=== PATIENT | male | born 1975 | race Hispanic/Latino ===

== ENCOUNTER 2024-03-10 17:15 | Inpatient (IN) | payer OTHER, SELFPAY ==
[2024-03-10 13:07] VITALS: BP 134/77
--- NOTE | 2024-03-10 15:10 | ED.GENMED ---
History of Present Illness
General
Chief Complaint: DVT/Possible Blood Clot
Source: patient
Time Seen by Provider: 03/10/24 13:16
History of Present Illness
History of Present Illness:
48-year-old male with past medical history of bipolar disorder and IBS presenting to the emergency department for evaluation at the request of his primary doctor after patient started noticed some redness and pain to his right leg around 1 week ago,
redness gradually extending along from the foot to the proximal mid right thigh, PCP concern for cellulitis versus DVT versus phlebitis. Patient states that he had been doing some outdoor yard work but did not notice any tick bites, Buford thorn
injury or any other insect bite. Denies any fevers, chills, rigors, headaches, vision disturbances, neck pain or stiffness or any other concerns. Patient denies any history of similar. He also denies any chest pain, shortness of breath,
palpitations or any other concerns.
Past History
Past History
ED Past Medical History: Psychiatric (bipolar) and Other (Chronic neck and back pain)
ED Past Surgical History: Orthopedic
Social History
Tobacco: Smoker
Alcohol: None
Drug: None
Personal:
Living: with family
Employment: Employed
Review of Systems
Review of Systems
All Other Systems: ROS reviewed and negative except as documented in HPI and ROS
Phy Exam
Physical Exam
Physical Exam:
GENERAL: Alert , in no apparent distress
EYE: conjunctiva clear
Head: Normocephalic atraumatic
NECK: Supple,
ENT: mmm.
LUNGS: no acute respiratory distress
NEUROLOGICAL: Alert and oriented
SKIN: Warm and dry, erythema tracking from medial right ankle through the medial gastronemius and into medial right thigh. Palpable chord. Hot to touch, ttp.
MUSCULOSKELETAL: well perfused. easily palpable pedal/tibial pulse
PSYCH: Normal and appropriate interaction.
Scores
Heart Failure Risk
Heart Failure Risk Score: Not Applicable
Heart Score for Chest Pain Patients
STEMI patient?: Not applicable
Withdrawal Assessment of Alcohol
Withdrawal Assessment Completed?: Not applicable
Course
Orders/Labs/Results
Orders:
Orders
03/10/24 13:16
US Periph Venous LOWER Ext RT Urgent
Comment:
Reason For Exam: edema, erythema
03/10/24 14:42
Ketorolac [Toradol] 30 mg IV NOW STA
03/10/24 15:41
Basic Metabolic Panel Urgent
Complete Blood Count/With Diff Urgent
Lyme Progressive Urgent
03/10/24 15:56
CeFAZolin 2 GRAM [Ancef] 2 grams in 10 ml IV NOW
Abnormal Lab Results
03/10/24
15:41
WBC 14.7 H 10^3/uL
(4.8-10.8)
RBC 4.64 L 10^6/uL
(4.70-6.10)
MCH 32.3 H pg
(27.0-31.0)
Abs Immat Gran (auto) 0.1 H 10^3/uL
(0-0.05)
Absolute Neuts (auto) 10.2 H 10^3/uL
(1.4-6.5)
Absolute Monos (auto) 1.0 H 10^3/uL
(0.1-0.6)
Immature Gran % 0.6 H %
(0-0.5)
BUN 21 H mg/dl
(9-20)
Glucose 113 H mg/dl
(70-99)
Calcium 10.5 H mg/dl
(8.4-10.2)
03/10/24 15:41
03/10/24 15:41
Vital Signs
Initial and Last Documented VS:
Initial Vital Signs
Temp Pulse Resp BP Pulse Ox
97.8 F 74 16 134/77 100
03/10/24 13:07 03/10/24 13:07 03/10/24 13:07 03/10/24 13:07 03/10/24 13:07
Last Documented Vital Signs
Temp Pulse Resp BP Pulse Ox
97.8 F 74 16 134/77 100
03/10/24 13:07 03/10/24 13:07 03/10/24 13:07 03/10/24 13:07 03/10/24 13:07
MDM/Problems Addressed
Differential Diagnosis Includes:
phlebitis, DVT, cellulitis
MDM/Problems Addressed:
48-year-old male presenting the ER for evaluation of right lower extremity erythema and pain. Ongoing for about 1 week. Gradually increased tracking to the proximal portion of the extremity which is what prompted primary care to send patient to
the ER. Patient denies any fevers or chills. No history of diabetes. Will order ultrasound and labs. Toradol ordered for pain control. Reassessment following.
*Radiology
Radiology exam reviewed: radiology read reviewed
*Pulse Oximetry
Patient hypoxic: no
*Critical Care Note
Total Time (30-74mins, 75-104mins- exclusive of procedures): Not Applicable
Patient Management
Discussion with other providers: Hospitalist
Escalation/DeEscalation of care consider admission/obs:
Ultrasound negative for DVT. There is prominent lymph node noted in the right groin. Leukocytosis on labs noted. Suspect cellulitis is most likely diagnosis at this point. Given the extent of the streaking feel patient would be better served
being admitted for IV antibiotics. 2 g Ancef ordered. Hospitalist team notified and accepts for continued evaluation and treatment.
ED Attending Note
-
Portions of this chart may have been created with voice recognition software.� Occasional wrong word or��sound alike� substitutions may have occurred due to the inherent limitations of voice recognition software.
Discharge Plan
Departure
Patient Disposition: Admit
Date of Disposition: 03/10/24
Time of Disposition: 15:57
Presentation/result/management discussed w/ accepting MD/DO: Hospitalist
Discharge Problem:
Cellulitis of leg, right
Prescriptions:
No Action
hydroxyzine pamoate 50 mg Capsule
50 mg PO BIDPRN PRN (Reason: anxiety)
Theragen Tablet
1 tab PO DAILY
quetiapine [Seroquel] 100 mg Tablet
100 mg PO DAILYPRN PRN (Reason: anxiety)
divalproex 500 mg Tablet Extended Release 24 Hr
500 mg PO DAILY
divalproex 500 mg Tablet Extended Release 24 Hr
1,000 mg PO HS
ibuprofen [Advil] 200 mg Tablet
400 mg PO Q6HPRN PRN (Reason: mild pain)
fenofibrate nanocrystallized 145 mg tablet
145 mg PO DAILY
quetiapine [Seroquel XR] 400 mg Tablet Extended Release 24 Hr
400 mg PO HS
Patient Comments:
03/10/24: States he takes ER seroquel, despite most recent fill not ER.
omega 0-chi-ccp-fish oil [Fish Oil] 1,200 (144-216) mg Capsule
1 cap PO DAILY
Medical Marijuana
1 dose PO DAILYPRN PRN (Reason: anxiety)
Referrals:
Julian Shah DO [Family Provider] -
Interventions
Interventions:
*Risk Screen - Suicide Last Done: 03/10/24 13:09
*General Assessment Last Done: 03/10/24 13:34
*Neglect/Abuse Screening Last Done: 03/10/24 13:09
*ED COVID-19 Vaccine History Last Done: 03/10/24 13:34
ED- Cardiac Assessment Last Done: 03/10/24 13:32
ED- Pulmonary Assessment Last Done: 03/10/24 13:32
ED-Peripheral Vascular Assessment Last Done: 03/10/24 13:32
ED-Skin Assessment Last Done: 03/10/24 13:32
Discharge Date and Time
Print Language: GEORGIAN
[2024-03-10] MEDS: TORADOL 30 MG IV (15:42)
[2024-03-10 15:58] LABS: % Basophils 0.3 % (0-2); % Eosinophils 1.6 % (0-6); % Immature Granulocytes 0.6 % (0-0.5); % Monocytes 7.1 % (1.7-9.3); % Neutrophils 69.4 % (42.2-75.2); Absolute Basophils 0.1 10^3/uL (0-0.2); Absolute Eosinophils 0.2 10^3/uL (0-0.7); Absolute Immature Granulocytes 0.1 10^3/uL (0-0.05); Absolute Lymphocytes 3.1 10^3/uL (1.2-3.4); Absolute Neutrophils 10.2 10^3/uL (1.4-6.5); Mean Corp Hgb Conc. 35.7 g/dL (33.0-37.0); Mean Corpuscular Hgb 32.3 pg (27.0-31.0); Mean Corpuscular Volume 90.5 fL (80.0-94.0); Mean Platelet Volume 10.2 fL (7.4-10.4); Nucleated Red Blood Cells % 0 % (-); Platelet Count 274 10^3/uL (130-400); Red Blood Cell Count 4.64 10^6/uL (4.70-6.10); Red Cell Dist. Width 13.2 % (11.5-14.5); White Blood Cell Count 14.7 10^3/uL (4.8-10.8)
[2024-03-10 16:12] LABS: Blood Urea Nitrogen 21 mg/dl (9-20); Calcium 10.5 mg/dl (8.4-10.2); Carbon Dioxide 26 mmol/L (22-30); Chloride 104 mmol/L (98-107); Glucose 113 mg/dl (70-99); Potassium 4.4 mmol/L (3.5-5.1); Sodium 142 mmol/L (135-145); eGFR > 60.00
[2024-03-10] MEDS: ANCEF 10 IV ×2 (16:17→23:23)
--- NOTE | 2024-03-10 16:44 | HPS.HSE ---
Family Physician
-
Family Physician: Julian Shah
Chief Complaint
-
Redness Right Lower Extremity
History of Present Illness
Patient is a 48 y/o male past medical history of bipolar disorder who presents with redness of the right leg. He notes on Sunday he developed some pain in the right calf area. Yesterday evening he noted a hard lump in the inner right thigh. In
the morning he noted the redness was worse and outside a line he marked last night. He reports increasing pain particular in the right inner thigh. He saw his PCP earlier today who sent him to the emergency department for evaluation. He denies
fevers, sweats or chills.
Medical History
Past Medical History
Past Medical History: Reports Other
Additional Past Medical History:
Bipolar Disorder / PTSD / Anxiety
Hypertriglyceridemia
Irritable Bowel Syndrome
Past Surgical History: Reports Other
Additional Past Surgical History:
Left Knee Meniscus
Right Foot Fracture
Social History
Tobacco: Smoker (1 PPD)
Family History
Family History: Not pertinent
Allergies / Home Medications
Allergies reflects when Allergies were last updated in [facility].
Home Medications with original date entered in [employer]
Allergy/Medication List:
Allergies
Allergy/AdvReac Type Severity Reaction Status Date / Time
No Known Allergies Allergy Verified 03/10/24 13:09
Home Medications
Medical Marijuana 1 dose PO DAILYPRN PRN anxiety 03/10/24
divalproex 500 mg tablet,extended release 24 hr 1,000 mg PO HS bipolar disorder 03/10/24
divalproex 500 mg tablet,extended release 24 hr 500 mg PO DAILY bipolar disorder 03/10/24
fenofibrate nanocrystallized 145 mg tablet 145 mg PO DAILY High Cholesterol 03/10/24
hydroxyzine pamoate 50 mg capsule 50 mg PO BIDPRN PRN anxiety 03/10/24
ibuprofen 200 mg tablet (Advil) 400 mg PO Q6HPRN PRN mild pain 03/10/24
omega 3-gvj-apj-fish oil 1,200 mg (144 mg-216 mg) capsule (Fish Oil) 1 cap PO DAILY Supplement 03/10/24
quetiapine 100 mg tablet (Seroquel) 100 mg PO DAILYPRN PRN anxiety 03/10/24
quetiapine 400 mg tablet,extended release 24 hr (Seroquel XR) 400 mg PO HS bipolar disorder 03/10/24
therapeutic multivitamin 1 tab PO DAILY Supplement 03/10/24
Review of Systems
-
A 12 point ROS was completed and negative except as noted: Yes
Constitutional: Denies Fever or Chills
Respiratory: Denies Cough or Trouble Breathing
Cardiac: Denies Chest Pain or Palpitations
Abdomen/GI: Denies Abdominal Pain, Nausea, Vomiting or Diarrhea
Physical Exam
Vital Signs
Vital Signs
Temp Pulse Resp BP Pulse Ox
97.8 F 74 16 134/77 100
03/10/24 13:07 03/10/24 13:07 03/10/24 13:07 03/10/24 13:07 03/10/24 13:07
Physical Exam
General: Comfortable and Conversant
HEENT: Anicteric and Moist mucous membranes
Respiratory: Clear and Non Labored Respirations
Cardiac: S1/S2 and Regular Rhythm
GI: Soft, Non Tender and Non Distended
Rectal: Deferred by Provider
Musculoskeletal: No Clubbing, No Cyanosis and Edema, Right Lower Extremity
Skin: Other (Area of induration right medical thigh without central fluctuance; Moderate erythema from right inner calf streaking up to the right groin with increased warmth to touch)
Neuro: Awake, Alert, Oriented and Nonfocal/grossly intact
Psych: Calm
Laboratory Results
-
03/10/24 15:41
03/10/24 15:41
Data Reviewed
-
Ultrasound: Report Reviewed by me
Lab Data: Labs Reviewed by me
Old Records: Reviewed
Impression/Plan
-
Right Lower Extremity Cellulitis with Lymphangitis
-Continue Ancef
Hypercalcemia
-Recheck calcium in AM
-Check PTH
Bipolar Disorder
-Continue Depakote and Seroquel
Hypertriglyceridemia
-Continue fenofibrate
DVT proph: Lovenox
Code Status: Full Code
[2024-03-10 17:12] LABS: Albumin 4.8 g/dl (3.5-5.0)
--- NOTE | 2024-03-10 17:29 | W.PN.UPDATE ---
Update Note
Progress Note Update
This is an addendum to the H&P written by Kusum Granado on 03/2024. Patient seen examined independently with PA.
48-year-old male past medical history of bipolar disorder, here for cellulitis/lymphangitis of right lower extremity. Cefazolin.
[2024-03-10 17:40] VITALS: BP 136/81; BMI 28.5
[2024-03-10] MEDS: MORPHINE SULFATE 2 MG IV (18:11)
[2024-03-10] MEDS: LOVENOX 40 MG SC (18:11)
--- NOTE | 2024-03-10 18:19 | PTCARENOTE ---
pt presents from ED via stretcher. pt is AAO*3, Vss, room air. pt c/o chronic sciatica pain on his lower back. pt oriented to the room. call pizarro within the reach. plan of care ongoing.
[2024-03-10] MEDS: DEPAKOTE ER (24 HR RELEASE) 1000 MG PO (18:38)
[2024-03-10] MEDS: NON-FORMULARY ITEM 400 MG PO (19:56)
[2024-03-10] MEDS: SEROQUEL 100 MG PO (19:56)
[2024-03-10 23:19] VITALS: BP 108/68
[2024-03-10] MEDS: FLUSH (NSS) 1 FLUSH IV (23:23)
[2024-03-11] MEDS: DEPAKOTE ER (24 HR RELEASE) 500 MG PO (07:21)
[2024-03-11 07:30] VITALS: BP 119/69
[2024-03-11] MEDS: ANCEF 10 IV ×3 (08:01→23:03)
[2024-03-11] MEDS: TRICOR 145 MG PO (08:01)
[2024-03-11] MEDS: NICODERM TRANSDERMAL 7 MG TRANSDERM (08:03)
[2024-03-11] MEDS: TORADOL 10 MG IV ×2 (08:05→23:06)
[2024-03-11 08:09] LABS: Hematocrit 40.3 % (39.0-52.0); Hemoglobin 14.3 g/dL (13.0-18.0); Mean Corp Hgb Conc. 35.5 g/dL (33.0-37.0); Mean Corpuscular Hgb 32.5 pg (27.0-31.0); Mean Corpuscular Volume 91.6 fL (80.0-94.0); Mean Platelet Volume 10.3 fL (7.4-10.4); Platelet Count 255 10^3/uL (130-400); Red Cell Dist. Width 13.2 % (11.5-14.5)
[2024-03-11 08:23] LABS: Intact PTH 23.9 pg/ml (13.6-85.8)
[2024-03-11 08:37] LABS: Albumin 4.3 g/dl (3.5-5.0); Blood Urea Nitrogen 21 mg/dl (9-20); Calcium 9.8 mg/dl (8.4-10.2); Carbon Dioxide 22 mmol/L (22-30); Chloride 105 mmol/L (98-107); Estimated Creatinine Clearance 82 ml/min; Glucose 125 mg/dl (70-99); Potassium 4.6 mmol/L (3.5-5.1); Sodium 140 mmol/L (135-145); eGFR > 60.00
--- NOTE | 2024-03-11 10:05 | W.PN.HOSP.TC ---
Today's Communication/Plan
-
see outlined plan
Assessment / Plan
Assessment / Plan
Assessment:
Right Lower Extremity Cellulitis with Lymphangitis
- continue Ancef day 1
- start Doxycycline day 1
- elevated RLE at all times
- taylor borders with marker, d/w RN
Hypercalcemia, suspect from dehydration
- normalized
- PTH normal
Bipolar Disorder
- continue Depakote and Seroquel
Hypertriglyceridemia
- continue fenofibrate
DVT ppx: Lovenox
Code: Full
Anticipated Discharge: 24 - 48 hours
Subjective/Interval History
-
Date of Service: March 11, 2024
patient denies any acute complaints
reports RLE redness is improving, less tenderness along posterior calf area and also near knee
no fevers
Objective Data
-
Labs:
Laboratory Results
03/11/24
07:09
WBC 14.0 H
Hgb 14.3
Hct 40.3
Plt Count 255
Sodium 140
Potassium 4.6
Chloride 105
Carbon Dioxide 22
BUN 21 H
Creatinine 1.0
Glucose 125 H
Calcium 9.8
Vital Signs:
Vital Signs
Temp Pulse Resp BP Pulse Ox
98.2 F 70 18 119/69 98
03/11/24 07:30 03/11/24 07:30 03/11/24 07:30 03/11/24 07:30 03/11/24 07:30
I&O
03/10/24 03/11/24 03/12/24
06:59 06:59 06:59
Intake Total 480 / 480
Balance 480 / 480
Physical Exam
-
General: No Apparent Distress
HEENT: Normocephalic and Atraumatic
Respiratory: Negative Wheezes
Cardiac: Regular Rhythm and S1/S2
GI: Soft and Nontender
Genito-urinary: No Costovertebral Tender
Musculoskeletal: Other (RLE with streaking erythema along medial thigh near knee down towards medial calf and near lateral ankle)
Neuro: AO x 3
Hematologic / Lymphatic: No Lymphadenopathy
Psych: Calm
Data Reviewed
-
Total Time Spent with Patient (in minutes): 42
Labs: Labs Reviewed by me
[2024-03-11] MEDS: VIBRAMYCIN 100 MG PO ×2 (10:46→19:54)
[2024-03-11 10:54] VITALS: BMI 28.5
[2024-03-11] MEDS: TYLENOL 650 MG PO (14:43)
[2024-03-11 15:14] VITALS: BP 111/68
[2024-03-11] MEDS: LOVENOX 40 MG SC (18:27)
[2024-03-11] MEDS: DEPAKOTE ER (24 HR RELEASE) 1000 MG PO (19:54)
[2024-03-11] MEDS: NON-FORMULARY ITEM 400 MG PO (19:54)
[2024-03-11] MEDS: SEROQUEL 100 MG PO (19:56)
[2024-03-11 23:00] VITALS: BP 101/61
[2024-03-12] MEDS: DEPAKOTE ER (24 HR RELEASE) 500 MG PO (06:31)
[2024-03-12 07:20] VITALS: BP 114/66
[2024-03-12 07:34] LABS: % Basophils 0.4 % (0-2); % Eosinophils 2.7 % (0-6); % Immature Granulocytes 0.4 % (0-0.5); % Lymphocytes 22.6 % (20.5-51.1); % Monocytes 9.2 % (1.7-9.3); % Neutrophils 64.7 % (42.2-75.2); Absolute Eosinophils 0.3 10^3/uL (0-0.7); Absolute Immature Granulocytes 0.1 10^3/uL (0-0.05); Absolute Lymphocytes 2.5 10^3/uL (1.2-3.4); Absolute Neutrophils 7.2 10^3/uL (1.4-6.5); Hematocrit 39.5 % (39.0-52.0); Mean Corp Hgb Conc. 35.4 g/dL (33.0-37.0); Mean Corpuscular Hgb 32.2 pg (27.0-31.0); Mean Corpuscular Volume 90.8 fL (80.0-94.0); Mean Platelet Volume 10.1 fL (7.4-10.4); Nucleated Red Blood Cells % 0 % (-); Platelet Count 234 10^3/uL (130-400); Red Blood Cell Count 4.35 10^6/uL (4.70-6.10); Red Cell Dist. Width 12.8 % (11.5-14.5); White Blood Cell Count 11.1 10^3/uL (4.8-10.8)
[2024-03-12 08:46] LABS: Blood Urea Nitrogen 22 mg/dl (9-20); Calcium 9.6 mg/dl (8.4-10.2); Carbon Dioxide 25 mmol/L (22-30); Chloride 103 mmol/L (98-107); Estimated Creatinine Clearance 75 ml/min; Glucose 120 mg/dl (70-99); Potassium 4.5 mmol/L (3.5-5.1); Sodium 141 mmol/L (135-145); eGFR > 60.00
[2024-03-12] MEDS: ANCEF 10 IV (09:18)
[2024-03-12] MEDS: NICODERM TRANSDERMAL 7 MG TRANSDERM (09:18)
[2024-03-12] MEDS: TRICOR 145 MG PO (09:19)
[2024-03-12] MEDS: VIBRAMYCIN 100 MG PO (09:19)
--- NOTE | 2024-03-12 09:38 | W.PN.HOSP.TC ---
Today's Communication/Plan
-
dc home
Assessment / Plan
Assessment / Plan
Assessment:
Right Lower Extremity Cellulitis with Lymphangitis
- symptoms improving, leukocytosis improving
- DC on Keflex + Doxy x 10 days further
- elevated RLE at all times
- PCP f/u in 7-10 days
Hypercalcemia, suspect from dehydration
- normalized
- PTH normal
Bipolar Disorder
- continue Depakote and Seroquel
Hypertriglyceridemia
- continue fenofibrate
DVT ppx: Lovenox
Code: Full
More than 30 minutes spent in discharge including
Final examination of the patient
Summarizing hospital stay
Instructions for continuing care to all relevant caregivers
Preparation of discharge records, prescriptions, and referral forms
Total time spent (in minutes):41
Anticipated Discharge: Today
Subjective/Interval History
-
Date of Service: March 12, 2024
reports improving pain, less edema, less redness, able to ambulate easier
Objective Data
-
Labs:
Laboratory Results
03/12/24
07:24
WBC 11.1 H
Hgb 14.0
Hct 39.5
Plt Count 234
Sodium 141
Potassium 4.5
Chloride 103
Carbon Dioxide 25
BUN 22 H
Creatinine 1.1
Glucose 120 H
Calcium 9.6
Vital Signs:
Vital Signs
Temp Pulse Resp BP Pulse Ox
97.9 F 66 16 114/66 97
03/12/24 07:20 03/12/24 07:20 03/12/24 07:20 03/12/24 07:20 03/12/24 07:20
I&O
03/11/24 03/12/24 03/13/24
06:59 06:59 06:59
Intake Total 480 / 480 960 / 960
Balance 480 / 480 960 / 960
Physical Exam
-
General: No Apparent Distress
HEENT: Normocephalic and Atraumatic
Respiratory: Negative Wheezes
Cardiac: Regular Rhythm and S1/S2
GI: Soft and Nontender
Genito-urinary: No Costovertebral Tender
Neuro: AO x 3
Hematologic / Lymphatic: No Lymphadenopathy
Psych: Calm
Data Reviewed
-
Total Time Spent with Patient (in minutes): 41
Labs: Labs Reviewed by me
--- NOTE | 2024-03-12 09:45 | W.DS.TRANS ---
DC Summary - Stunt Double
-
Discharge Instructions:
Discharge Diagnosis/Procedures RLE cellulitis
Diet Regular
Activity As tolerated
Bathing Restrictions None
Instructions:
Stand-Alone Forms:
Changes to Home Medications: No
Discharge Medications:
DC Medications w/original date entered in [facility]
Medical Marijuana 1 dose PO DAILYPRN PRN anxiety 03/10/24
divalproex 500 mg tablet,extended release 24 hr 1,000 mg PO HS bipolar disorder 03/10/24
divalproex 500 mg tablet,extended release 24 hr 500 mg PO DAILY bipolar disorder 03/10/24
fenofibrate nanocrystallized 145 mg tablet 145 mg PO DAILY High Cholesterol 03/10/24
hydroxyzine pamoate 50 mg capsule 50 mg PO BIDPRN PRN anxiety 03/10/24
quetiapine 100 mg tablet (Seroquel) 100 mg PO DAILYPRN PRN anxiety 03/10/24
quetiapine 400 mg tablet,extended release 24 hr (Seroquel XR) 400 mg PO HS bipolar disorder 03/10/24
therapeutic multivitamin 1 tab PO DAILY Supplement 03/10/24
cephalexin 500 mg capsule 500 mg PO QID 10 days #40 caps 03/12/24
doxycycline hyclate 100 mg capsule 100 mg PO Q12 #20 caps 03/12/24
Home Medication Changes
Pending Results: No
Total time spent discharging patient (in min): 41
--- NOTE | 2024-03-12 11:39 | CM ---
PATRICIA met with Chao to complete IA. He lives with his in a 2 story home with 1 entry step. Full flight to the second floor.
Chao works FT, has been (I) amb and adls prior to his illness.
Plan: Discharge to home with outpatient follow up. No needs anticipated.
PCP: Julian Shah
Pharmacy: [facility]
[2024-03-12 12:40] VITALS: BP 114/62
[2024-03-13 10:19] LABS: Lyme Antibody Screen, EIA Negative (Negative)
== END 2024-03-12 12:52 | disposition home or self-care (01) | DRG 603 ==
LOC: 4 EAST ACU 17:15
PROVIDERS: Physician Assistant Medical; ADMITTING PHYSICIAN Hospitalist; ATTENDING PHYSICIAN Internal Medicine; EMERGENCY PHYSICIAN Emergency Medicine; FAMILY PHYSICIAN Family Medicine
DX: L03.115 Cellulitis of right lower limb (principal); F31.9 Bipolar disorder, unspecified; G89.29 Other chronic pain; M54.2 Cervicalgia; M54.9 Dorsalgia, unspecified; K58.9 Irritable bowel syndrome, unspecified; R60.9 Edema, unspecified; D72.829 Elevated white blood cell count, unspecified; F41.9 Anxiety disorder, unspecified; F43.10 Post-traumatic stress disorder, unspecified; E78.1 Pure hyperglyceridemia; F17.210 Nicotine dependence, cigarettes, uncomplicated; E83.52 Hypercalcemia; E86.0 Dehydration; E83.51 Hypocalcemia
CPT/HCPCS: 80048; 82040; 83970; 85025; 85027; 86618; 93971; 96374; 96375; 99285